=== PATIENT | female | born 1965 | race Caucasian/White ===

== ENCOUNTER 2018-11-10 14:19 | Emergency (ER) | payer BC ==
[~2018-11-10] VITALS: Ht 165.1 cm; Wt 83.2 kg
[2018-11-10 14:24] VITALS: TEMP 98.7
[2018-11-10] MEDS ORDERED: FLONASE NASAL S16 GM NS (15:41)
[2018-11-10] MEDS ORDERED: EFFEXOR-XR150 MG PO (15:42)
[2018-11-10] MEDS ORDERED: MULTI VITAMINS1 TAB PO (15:44)
[2018-11-10] MEDS ORDERED: CALCIUM 600-D 61 TAB PO (15:45)
[2018-11-10 16:12] LABS: BASO % 0.6 % (0.0-2.0); EOS # 0.2 (0.0-0.7); EOS % 2.8 % (0-4.0); GRAN # 3.3 (1.4-6.5); GRAN % 44.9 % (42.2-75.2); HEMOGLOBIN 11.9 g/dl (12.5-16.0); LYMPH # 3.2 (1.2-3.4); LYMPH % 44.2 % (20.0-51.0); MEAN CELL VOLUME 90 fl (80.0-100.0); MEAN CORPUSCULAR HEMOGLOBIN 30 pg (27.0-31.0); MEAN CORPUSCULAR HGB CONC 33 g/dl (33.0-37.0); MEAN PLATELET VOLUME 12.2 fl (7.4-10.4); MONO # 0.5 (0.1-0.6); MONO % 7.2 % (1.7-9.3); PLATELET COUNT 179 K/mm3 (130-400); RED BLOOD COUNT 4.03 M/mm3 (4.10-5.30); REDCELL DISTRIBUTION WIDTH-CV 13.6 % (11.5-14.5)
[2018-11-10 16:14] LABS: HEMATOCRIT 36.1 % (37.0-47.0)
[2018-11-10 16:15] LABS: ALANINE AMINOTRANSFERASE 32 U/L (9-52); ALBUMIN 3.6 gm/dL (3.5-5.0); ALKALINE PHOSPHATASE 36 U/L (50-136); ANION GAP 4 mmol/L (7-16); AST,SGOT 30 U/L (15-37); BILIRUBIN,TOTAL 0.1 mg/dL (0.0-1.0); BLOOD UREA NITROGEN 16 mg/dL (7-17); CALCIUM 8.8 mg/dL (8.4-10.2); CARBON DIOXIDE 29 mmol/L (22-30); CHLORIDE 109 mmol/L (98-107); CREATININE, serum 0.76 mg/dL (0.52-1.25); GLUCOSE 71 mg/dL (74-106); SODIUM 142 mmol/L (137-145); TOTAL PROTEIN 6.3 gm/dL (6.4-8.2)
[2018-11-10 16:28] LABS: TROPONIN-I < 0.012 ng/mL (0.000-0.034)
[2018-11-10 17:23] LABS: COLLECTION METHOD CLEAN CATCH
[2018-11-10 17:28] VITALS: BP 163/82; PULSE 74
[2018-11-10 17:54] LABS: MUCOUS Present /lpf; PH 5 (5-8); SQUAMOUS EPITHELIAL 0-2 /hpf; URINE APPEARANCE Clear; URINE BACTERIA None Seen /hpf; URINE BILIRUBIN Negative (NEGATIVE); URINE BLOOD Negative (NEGATIVE); URINE COLOR Straw; URINE GLUCOSE Negative (NEGATIVE); URINE KETONE Trace (NEGATIVE); URINE LEUKOCYTE ESTERASE Negative (NEGATIVE); URINE NITRATE Negative (NEGATIVE); URINE PROTEIN(semi-quant) Negative (NEGATIVE); URINE RBC 0-2 /hpf; URINE UROBILINOGEN Negative (NEGATIVE)
== END 2018-11-10 17:33 | disposition home or self-care (01) ==
LOC: COL.ER 14:19
PROVIDERS: Emergency Medicine
DX: R00.2 Palpitations (principal); F32.9 Major depressive disorder, single episode, unspecified; Z88.2 Allergy status to sulfonamides
CPT/HCPCS: J7030

== ENCOUNTER 2023-01-07 21:02 | Observation (INO) | payer OTHER ==
[~2023-01-07 21:02] MED LIST: ALEVE 220MG220 MG PO; ASPIRIN E.C. 8181 MG PO; CALCIUM 600-D 61 TAB PO; CEPHALEXIN500 M1 PO; CLARITIN 1010 MG/TAB PO; EFFEXOR XR75 MG/CAP PO; EFFEXOR-XR150 MG PO; FLONASE NASAL S16 GM NS; MULTI VITAMINS1 TAB PO; RELPAX20 MG PO; TOPROL XL 25MG25 MG PO; TYLENOL 500MG500 MG PO
[2023-01-07 22:45] VITALS: BP 137/77; PULSE 72; TEMP 98.5
[2023-01-07] MEDS ORDERED: TAMBOCOR50 MG PO (22:48)
[2023-01-07] MEDS ORDERED: SYNTHROID0.05 MG/TA PO (22:50)
[2023-01-08 03:11] VITALS: BP 101/71; PULSE 67; TEMP 98.8
--- NOTE | 2023-01-08 06:27 | NUR ---
ATTEMPTED TO CONTACT DR. GARCIA FOR CONSULT. LEFT MESSAGE.
[2023-01-08 06:55] VITALS: BP 120/78; PULSE 66; TEMP 98.6
--- NOTE | 2023-01-08 07:04 | NUR ---
Received bedside report from the night nurseDee RN
--- NOTE | 2023-01-08 08:01 | NUR ---
Pt taken down for an MRI at 0730. Telemetry taken off and left in the room.
--- NOTE | 2023-01-08 08:05 | NUR ---
Patient sitting at the edge of the bed eating breakfast. Neuro checks completed. Patient alert and oriented. Patient in no distress or confused at this time. INT intact. Patient has no concerns at this time. See process intervention for notes.
--- NOTE | 2023-01-08 08:07 | NUR ---
Patient off the unit for MRI at 0750. Telemonitor off temporarily for MRI.
--- NOTE | 2023-01-08 08:46 | NUR ---
Pt alert and oriented x4, upon entering the room pt found in bed awake on her phone. Assessment as charted at 0700, telemetry on, IV to the Lt AC clean dry and intact no redness or swelling noted. Pt has purposeful movement to all extremities, steady gait with SBA, no confusion noted at this time. Pt denies SOA and has no acute concerns at this time.
--- NOTE | 2023-01-08 08:51 | NUR ---
Pt returned to the floor from MRI at 0850.
--- NOTE | 2023-01-08 09:13 | NUR ---
GAY met with the patient and her daughters: Lizy (ph#[phone]) and Andria to discuss discharge plan. The patient lives alone in [place]. She reports independence with ADLs and does not have any DME. The patient's PCP is Dr. Joby Pollock and she receives her medications from [facility]. The patient does not have a DPOA-HC, but she was interested in obtaining a form. GAY provided. The patient states that she is not and has three children: Lizy, Andria, and Rhiannon. The patient plans to return home upon discharge. The patient provided GAY with her insurance card. GAY notified and emailed a copy of the card to admissions and product management consultant. No additional needs at this time. *Discharge plan: home*
--- NOTE | 2023-01-08 10:40 | NUR ---
Initial visit; Patient states that she is doing better and thanked Senior Advisor for looking in on her and her family. Senior Advisor offered God's blessings for Hedy and her three daughters and grand-daughter who were all present. Senior Advisor will keep Hedy in her prayers.
[2023-01-08 11:11] VITALS: BP 110/74; PULSE 73; TEMP 99
[2023-01-08 11:16] LABS: BASO # 0.1 K/mm3 (0.0-0.2); BASO % 0.6 % (0.0-2.0); EOS # 0.4 K/mm3 (0.0-0.7); EOS % 4.5 % (0.0-4.0); GRAN # 4.5 K/mm3 (1.4-6.5); GRAN % 54.1 % (42.2-75.2); HEMATOCRIT 41.2 % (37.0-47.0); HEMOGLOBIN 13.3 g/dl (12.5-16.0); LYMPH # 2.8 K/mm3 (1.2-3.4); LYMPH % 33.5 % (20.0-51.0); MEAN CELL VOLUME 91 fl (80.0-100.0); MEAN CORPUSCULAR HEMOGLOBIN 29 pg (27-31); MEAN CORPUSCULAR HGB CONC 32 g/dl (33.0-37.0); MEAN PLATELET VOLUME 11.1 fl (7.4-10.4); MONO # 0.6 K/mm3 (0.1-0.6); MONO % 7.2 % (1.7-9.3); PLATELET COUNT 246 K/mm3 (130-400); RED BLOOD COUNT 4.54 M/mm3 (4.10-5.30); REDCELL DISTRIBUTION WIDTH-CV 13.6 % (11.5-14.5)
[2023-01-08 12:13] LABS: CREATININE, serum 0.86 mg/dL (0.57-1.11); POTASSIUM 4.3 mmol/L (3.5-4.5)
== END 2023-01-08 15:15 | disposition home or self-care (01) ==
LOC: MEDICAL 21:02 → SURG 22:35
PROVIDERS: Student in an Organized Health Care Education/Training Program; ADMIT Internal Medicine
DX: R41.0 Disorientation, unspecified (principal); R41.3 Other amnesia; I48.0 Paroxysmal atrial fibrillation; E03.9 Hypothyroidism, unspecified; G47.33 Obstructive sleep apnea (adult) (pediatric); F32.A Depression, unspecified; R51.9 Headache, unspecified; Z79.890 Hormone replacement therapy; Z79.899 Other long term (current) drug therapy; Z79.82 Long term (current) use of aspirin
CPT/HCPCS: A9575; G0379; J1650